=== PATIENT | male | born 1985 | race Caucasian/White ===

== ENCOUNTER 2016-07-07 19:55 | Emergency (ER) | payer OTHER ==
[2016-07-07 20:08] VITALS: BP 130/68
--- NOTE | 2016-07-07 20:13 | ER Document Report ---
ED Medical Screen (RME) - General Stated Complaint: LEFT THUMB LACERATION Notes: 30 yo male c/o laceration to left thumb. cut with dremmel tool while make soap box [employer] car for son. 0.5 cm laceration over PIP. no active bleeding. no tendon involvement tetnus UTD Physical Exam - Vital signs Vitals: Temp Pulse Resp BP Pulse Ox 98.0 F 67 16 130/68 H 98 07/07/16 20:06 07/07/16 20:06 07/07/16 20:06 07/07/16 20:06 07/07/16 20:06 Course - Vital Signs Vital signs: Temp Pulse Resp BP Pulse Ox 98.0 F 67 16 130/68 H 98 07/07/16 20:06 07/07/16 20:06 07/07/16 20:06 07/07/16 20:06 07/07/16 20:06
== END 2016-07-08 00:01 | disposition left against medical advice (07) ==
LOC: ER 19:55
DX: S61.012A Laceration without foreign body of left thumb without damage to nail, initial encounter (principal); W29.8XXA Contact with other powered hand tools and household machinery, initial encounter; Y93.89 Activity, other specified; Z53.20 Procedure and treatment not carried out because of patient's decision for unspecified reasons
CPT/HCPCS: 99281